=== PATIENT | male | born 1985 | race Caucasian/White ===

== ENCOUNTER 2016-05-10 22:14 | Emergency (ER) | payer OTHER ==
[2016-05-11 02:04] LABS: HEMOGLOBIN 15.7 gm/dl (14.0-17.5); RED BLOOD COUNT 5.18 M/UL (4.20-5.50); WHITE BLOOD COUNT 12.3 K/UL (4.5-11.0)
[2016-05-11 02:24] LABS: BUN/CREATININE RATIO 9 (0-10)
== END 2016-05-11 03:00 | disposition home or self-care (01) ==
LOC: ER1 22:14
PROVIDERS: Family Medicine
DX: L03.113 Cellulitis of right upper limb (principal)
CPT/HCPCS: 36415; 80053; 85025; 87040; 87070; 87077; 87186; 87205; 96374; 99283; J0875

== ENCOUNTER 2016-05-16 19:48 | Emergency (ER) | payer OTHER | END 2016-05-16 23:20 | disposition home or self-care (01) | LOC: ER1 19:48 | DX: L03.113 Cellulitis of right upper limb (principal) | CPT/HCPCS: 99282 ==